=== PATIENT | male | born 1995 | race Caucasian/White ===

== ENCOUNTER → 2021-09-11 | Outpatient (CLI) | payer OTHER ==
[2021-09-11 12:50] LABS: PH-URINE 7.5 (5.0 - 8.0); URINE APPEARANCE CLEAR; URINE BILIRUBIN NEGATIVE (NEGATIVE); URINE BLOOD NEGATIVE (NEGATIVE); URINE COLOR YELLOW; URINE GLUCOSE NEGATIVE (NEGATIVE); URINE KETONE NEGATIVE (NEGATIVE); URINE LEUKOCYTE ESTERASE NEGATIVE (NEGATIVE); URINE NITRATE NEGATIVE (NEGATIVE); URINE PROTEIN(semi-quant) NEGATIVE (NEGATIVE); URINE UROBILINOGEN NORMAL (NORMAL)
[2021-09-11 12:51] LABS: URINE WBC 0-1 /hpf (0-3)
== END ==
LOC: LAB 11:29
PROVIDERS: Family Medicine
DX: N62 Hypertrophy of breast (principal); R35.81 Nocturnal polyuria

== ENCOUNTER → 2023-08-04 | Outpatient (CLI) | payer OTHER ==
[2023-09-08 17:19] LABS: TB MITOGEN-NIL >10.00; TB TB1-NIL 0.06; TB TB2-NIL 0.06
[2023-09-08 17:20] LABS: TB NIL VALUE 0.02
[2023-09-15 08:23] LABS: TB GOLD INTERPRETATION.TB GOLD See Report (Negative)
== END ==
LOC: LAB 10:47
PROVIDERS: Nurse Practitioner Family
DX: Z02.1 Encounter for pre-employment examination (principal)

== ENCOUNTER → 2024-03-03 | Outpatient (CLI) | payer OTHER ==
[2024-03-04 01:29] LABS: HEPATITIS C VIRUS ANTIBODY Nonreactive (Nonreactiv)
== END ==
LOC: LAB 16:48
PROVIDERS: Family Medicine
DX: Z11.59 Encounter for screening for other viral diseases (principal); Z11.4 Encounter for screening for human immunodeficiency virus [HIV]